=== PATIENT | male | born 1995 | race African-American/Black ===

== ENCOUNTER 2016-07-23 12:54 | Emergency (ER) ==
[2016-07-23 13:02] VITALS: BP 125/102
[2016-07-23] MEDS ORDERED: DECADRON IM ONE (15:03)
--- NOTE | 2016-07-23 15:07 | PROVIDER DOCUMENTATION ---
HPI-General Adult - General Chief Complaint: Sore Throat Stated Complaint: SORE THROAT,COUGHING,CONGESTED,SEGUNDO Time Seen by Provider: 07/23/16 14:12 Source: patient Allergies/Adverse Reactions: Patient Allergies Allergy/AdvReac Type Severity Reaction Status Date / Time No Known Allergies Allergy Verified 07/23/16 14:39 Home Medications: Home Medication List Medication Instructions Recorded Confirmed Last Taken Type Prednisone [Deltasone] 20 mg PO DIRECTED #12 tablet 07/23/16 Unknown Rx - History of Present Illness -Gen Adult Nature of Presenting Problems: 20 y/o AAM c/o sore throat, congestion and body aches x 2 days. Denies fevers or chills. Non-productive cough. Denies sob or wheezing. Denies abdominal pain,n /v/d. Niece was sick earlier this week. No pre-arrival treatments. Review of Systems - Adult - REVIEW OF SYSTEMS - ADULT Constitutional: reports: see HPI, fatique. denies: chills, fever Eyes: reports: no symptoms reported. denies: decreased vision, blurred vision, double vision, eye pain Ears, Nose, Mouth & Throat: reports: see HPI, ear pain, sinus problem, nose pain , throat pain Cardiovascular: reports: no symptoms reported. denies: chest pain Respiratory: reports: see HPI, cough. denies: shortness of breath, wheezing Gastrointestinal: reports: no symptoms reported. denies: abdominal pain, diarrhea, nausea, vomiting Genitourinary: reports: no symptoms reported. denies: dysuria, discharge, frequency Musculoskeletal: reports: see HPI, muscle aches. denies: bone pain, back pain Integumentary: reports: no symptoms reported. denies: rash Neurological: reports: no symptoms reported. denies: headache/migraines Psychiatric: reports: no symptoms reported Endocrine: reports: no symptoms reported Hematologic/Lymphatic: reports: no symptoms reported Allergic/Immunologic: reports: no symptoms reported All Other Systems: Reviewed and Negative Past History - Adult - PAST MEDICAL HISTORY-ADULT Review of Records: reports: Old Records Reviewed, Nursing Assessment Review, Medications Reviewed Major Childhood Illnesses: reports: denies history Cardiovascular: reports: denies history Respiratory: reports: asthma Gastrointestinal: reports: denies history Neurological: reports: headaches/migraines - PRIOR SURGERIES/PROCEDURES Surgical/Procedure History: reports: none - IMMUNIZATION STATUS Childhood Immunizations: See Nurse Assessment Flu Vaccine: See Nurse Assessment - FAMILY HISTORY Family History: HTN - SOCIAL HISTORY Smoking: less than 1 pack/day Provider spent 3-5 mins advising pt. on dangers of tobacco.: Discussed manners to quit use, and f/u contacts for add'l counseling. Substance Use: marijuana Alcohol Use Frequency: every day Number of drinks per typical drinking period:: 2 drinks Living Situation: family Physical Exam-General - PHYSICAL EXAM-ADULT Initial Vital Signs Reviewed: Yes - CONSTITUTIONAL General Appearance: appears well, alert, no apparent distress - EYES Eyes: PERRL/EOMI, pink conjunctivae - HEAD, EARS, NOSE, MOUTH & THROAT HENMT: normocephalic/atraumatic, moist mucous membranes, normal ENT inspection, TMs normal, pharynx normal - NECK Neck: non-tender, full range of motion, supple, normal inspection. negative: lymphadenopathy - RESPIRATORY Respiratory: chest non-tender, lungs clear, normal breath sounds, no pleuratic chest pain, no respiratory distress, no accessory muscle use. negative: respiratory distress, decreased breath sounds, accessory muscle use, crackles, rales, rhonchi, wheezing - CARDIOVASCULAR Cardiovascular: normal peripheral pulses, regular rate, rhythm - MUSCULOSKELETAL Back Exam: normal inspection Extremity: normal gait - SKIN Integumentary: normal color, normal turgor, warm/dry - NEUROLOGIC Neurologic: grossly normal, no motor/sensory deficits - PSYCHIATRIC Psych/Mental Status: normal mood/affect, normal thought content, normal thought process, oriented x 3 Progress - PLAN OF CARE/RESULTS Progress/Plan/Lab Results: Vital Signs Temp Pulse Resp BP Pulse Ox 07/23/16 13:00 98.5 F 97 H 20 125/102 100 No Known Allergies Allergy (Verified 07/23/16 14:39) Prednisone [Deltasone] 20 mg PO DIRECTED #12 tablet 07/23/16 Orders Category Date Time Status DIRECT STREP Stat Lab 07/23/16 13:04 Completed Flu Swab [INFLUENZA SCREEN A/B] Stat Lab 07/23/16 13:04 Completed Dexamethasone [Decadron] Med 07/23/16 15:03 Discontinued 4 mg IM NOW ONE strep and flu negative Departure - Departure Time of Disposition Order: 15:03 DIAGNOSIS: Viral URI with cough Disposition: HOME 01 Certified Medical Emergency: Emergent Condition: Stable Additional Instructions: Drink fluids and get plenty of sleep ED Follow Up Instructions: You have been treated by a care provider in the Emergency Department. These instructions are being provided to you so you can have an understanding of how to care for yourself upon discharge. Upon discharge from the Emergency Department, you are responsible for making arrangements for follow-up care by a physician of your choice. Take all prescribed medications as directed. Return to the Emergency Department immediately for any new or worsening symptoms. You may call the Physician Referral phone number at [phone] to obtain a list of Physicians who are taking new patients. Prescriptions: Prednisone [Deltasone] 20 mg PO DIRECTED #12 tablet Attestation - Physician/ CELSO Attestation Patient care was provided by Advanced Practice Provider:: Yes Advanced Practice Provider:: Pham Del Real Advanced Practice Provider documentation review:: The Mid-level provider documentation, treatment plan and medical decision making was reviewed by the physician who agrees with all treatment and medical decision making by the MLP.
== END 2016-07-23 16:00 | disposition home or self-care (01) ==
LOC: ED 12:54
DX: J06.9 Acute upper respiratory infection, unspecified (principal); R05 Cough; J02.9 Acute pharyngitis, unspecified; R09.81 Nasal congestion; R51 Headache; R53.83 Other fatigue; H92.09 Otalgia, unspecified ear; J34.89 Other specified disorders of nose and nasal sinuses; M79.1 Myalgia; F17.210 Nicotine dependence, cigarettes, uncomplicated; Z71.6 Tobacco abuse counseling
CPT/HCPCS: 87081; 87430; 87804; 96372; J1100

== ENCOUNTER 2016-07-27 20:32 | Emergency (ER) ==
[2016-07-27 20:53] LABS: URINE CULTURE NEEDED? NO; URINE MICRO REVIEW NEEDED? NO; URINE SOURCE CLEAN CATCH
[2016-07-27 20:57] LABS: BASO% 0.3 % (0.0-0.8); BILIRUBIN URINE NEGATIVE (NEGATIVE); BLOOD URINE SMALL (NEGATIVE); COLOR STRAW; EOS# 0.94 X1000 (0.0-0.7); GLUCOSE URINE NEGATIVE (NEGATIVE); HEMATOCRIT 39.2 % (42.0-52.0); HEMOGLOBIN 12.8 g/dL (14.0-18.0); IMM GRAN# 0.03 X1000 (0.0-0.04); IMM GRAN% 0.3 % (0.0-0.5); LEUKOCYTES URINE NEGATIVE (NEGATIVE); LYMPH# 2.42 X1000 (1.2-3.4); LYMPH% 25.7 % (20.5-51.1); MANUAL DIFF NEEDED? NO; MCH 24.1 PG (27-31); MCHC 32.7 g/dL (33-37); MCV 73.7 FL (81-99); MONO# 1.05 X1000 (0.11-0.59); MONO% 11.1 % (1.7-9.3); MPV 9.7 FL (7.4-10.4); NEUT% 52.6 % (42.2-75.2); NITRITE URINE NEGATIVE (NEGATIVE); PH URINE 7.5; PLT 293 X1000 (130-400); PROTEIN URINE 50 mg/dL (NEGATIVE); RBC 5.32 XMIL (4.7-6.1); SP GRAVITY URINE 1.004; TURBIDITY URINE CLEAR (CLEAR); UR EPITHELIAL CELLS <10 /HPF (<10); URINE BACTERIA NEGATIVE /HPF; URINE WBC <10 /HPF (<10); UROBILINOGEN URINE NORMAL (NORMAL)
[2016-07-27 21:20] LABS: AGAP 13; ALKALINE PHOSPHATASE 53 U/L (32-122); AMYLASE 49 U/L (20-200); BUN 8 mg/dL (8-22); CALCIUM 8.9 mg/dL (8.8-10.2); CHLORIDE 99 mmol/L (98-107); COSMO 274; GOT 16 U/L (10-34); GPT 13 U/L (10-44); LIPASE 32 U/L (13-60); POTASSIUM 4.4 mmol/L (3.5-5.1); SODIUM 138 mmol/L (136-145); TCO2 26 mmol/L (25-35); TOTAL PROTEIN 7.2 g/dL (6.3-8.3)
--- NOTE | 2016-07-27 21:41 | PROVIDER DOCUMENTATION ---
HPI-Abdominal Pain/GI Problem <Cecil Lynn - Last Filed: 07/27/16 22:44> - General Source: patient - History of Present Illness-ABD Nature of Presenting Problems: 20 year old M presents to the ED with a cc of ABD pain, nausea, vomiting, and diarrhea x2 days. PT was seen on 07/23 for cough, congestion, and body aches. PT states that he is still having cough and congestion. Pt has been able to keep fluids down the past 2 days. PT states ABD pain is worse with coughing. Abdominal Pain Onset Location: reports: RLQ, LLQ Pain Radiation: reports: no radiation Quality of Pain: reports: aching Severity in ED: reports: mild Onset/Duration: reports: 2 days ago Timing: reports: still present Activities at Onset: reports: none Associated Symptoms: reports: cough, diarrhea, sinus congestion/drainage, nausea , vomiting # of Diarrhea Episodes: 6 Bruising or Bleeding Gums?: No Similar Symptoms Previously?: No Recently seen or treated by another doctor?: No <Sheela Queen - Last Filed: 07/27/16 22:56> - General Chief Complaint: Abdominal Pain Stated Complaint: ABD PAIN, NAUSEA Time Seen by Provider: 07/27/16 21:30 Allergies/Adverse Reactions: Patient Allergies Allergy/AdvReac Type Severity Reaction Status Date / Time No Known Allergies Allergy Verified 07/27/16 22:07 Home Medications: Home Medication List Medication Instructions Recorded Confirmed Last Taken Type Codeine/Promethazine [Phenergan 10 ml PO TID PRN PRN #120 ml 07/27/16 Unknown Rx with Codeine] Review of Systems - Adult - REVIEW OF SYSTEMS - ADULT Constitutional: denies: chills, fever Eyes: reports: no symptoms reported Ears, Nose, Mouth & Throat: reports: sinus problem. denies: ear pain, throat pain Cardiovascular: reports: no symptoms reported Respiratory: reports: cough. denies: shortness of breath Gastrointestinal: reports: abdominal pain, diarrhea, nausea, vomiting Genitourinary: denies: dysuria, hematuria Musculoskeletal: reports: no symptoms reported Integumentary: reports: no symptoms reported Neurological: reports: no symptoms reported Psychiatric: reports: no symptoms reported Endocrine: reports: no symptoms reported Hematologic/Lymphatic: reports: no symptoms reported Allergic/Immunologic: reports: no symptoms reported All Other Systems: Reviewed and Negative <Sheela Queen - Last Filed: 07/27/16 22:56> Past History - Adult - PAST MEDICAL HISTORY-ADULT Review of Records: reports: Nursing Assessment Review, Medications Reviewed Major Childhood Illnesses: reports: denies history Cardiovascular: reports: denies history Respiratory: reports: asthma Gastrointestinal: reports: denies history Neurological: reports: headaches/migraines Psychiatric: reports: other (ETOH abuse and chemical abuse) - PRIOR SURGERIES/PROCEDURES Surgical/Procedure History: reports: none - IMMUNIZATION STATUS Childhood Immunizations: See Nurse Assessment Flu Vaccine: See Nurse Assessment - FAMILY HISTORY Family History: HTN - SOCIAL HISTORY Smoking: cigarettes Provider spent 3-5 mins advising pt. on dangers of tobacco.: Discussed manners to quit use, and f/u contacts for add'l counseling. Substance Use: alcohol, marijuana Alcohol Use Frequency: every day Number of drinks per typical drinking period:: 2 drinks <Sheela Queen - Last Filed: 07/27/16 22:56> Physical Exam-General - PHYSICAL EXAM-ADULT Initial Vital Signs Reviewed: Yes - CONSTITUTIONAL General Appearance: appears well, alert, no apparent distress - RESPIRATORY Respiratory: chest non-tender, lungs clear, normal breath sounds - CARDIOVASCULAR Cardiovascular: normal peripheral pulses, regular rate, rhythm, no edema - GASTROINTESTINAL (ABDOMEN) Abdominal Exam: normal bowel sounds, soft, guarding (voluntary), rebound (mild) , tenderness (mild generalized ABD tenderness greater in RLQ), McBurney's point tenderness, other (positive heal tap) - MUSCULOSKELETAL Extremity: normal inspection - SKIN Integumentary: normal color, normal turgor, warm/dry - PSYCHIATRIC Psych/Mental Status: normal mood/affect, normal thought content, normal thought process, oriented x 3 <Sheela Queen - Last Filed: 07/27/16 22:56> Progress - PLAN OF CARE/RESULTS Progress/Plan/Lab Results: plan of care: labs, medications, imaging. Orders Category Date Time Status Saline Loc DIRECTED Care 07/27/16 20:40 Active NPO Diet 07/27/16 20:40 Active ABDOMEN/PELVIS W/O CONTRAST [CT] Stat Exams 07/27/16 21:43 Taken AMYLASE [CHEM] Stat Lab 07/27/16 20:40 Completed CBC WITH ELECTRONIC DIFF [HEME] Stat Lab 03/21/17 20:40 Completed COMPREHENSIVE METABOLIC PANEL [CHEM] Stat Lab 07/27/16 20:40 Completed LIPASE [CHEM] Stat Lab 07/27/16 20:40 Completed URINALYSIS W/POSS RFLX CULT [URINALYSIS] Stat Lab 07/27/16 20:40 Completed Codeine/Promethazine [Phenergan with Codeine Liquid] Med 07/27/16 22:43 Discontinued 10 ml PO NOW ONE Hydrocodone/APAP 7.5 mg/325 mg [[place]-7.5] Med 07/27/16 21:43 Discontinued 1 each PO NOW ONE Ibuprofen [Motrin] Med 07/27/16 21:43 Discontinued 800 mg PO NOW ONE Ondansetron Odt [Zofran Odt] Med 07/27/16 21:43 Discontinued 8 mg PO NOW ONE Laboratory Tests 07/27/16 07/27/16 07/27/16 20:40 20:40 20:40 WBC 9.42 RBC 5.32 Hgb 12.8 L Hct 39.2 L MCV 73.7 L MCH 24.1 L MCHC 32.7 L RDW Std Deviation 13.9 Plt Count 293 MPV 9.7 Immature Gran % (Auto) 0.3 Neut % (Auto) 52.6 Lymph % (Auto) 25.7 [place] % (Auto) 11.1 H Eos % (Auto) 10.0 Baso % (Auto) 0.3 Immature Gran # (Auto) 0.03 Neut # (Auto) 4.95 Lymph # (Auto) 2.42 [place] # (Auto) 1.05 H Eos # (Auto) 0.94 H Baso # (Auto) 0.03 Sodium 138 Potassium 4.4 Chloride 99 Carbon Dioxide 26 Anion Gap 13 BUN 8 Creatinine 1.3 H Estimated GFR/1.73 m2 > 60 BUN/Creatinine Ratio 6 Glucose 90 Calculated Osmolality 274 Calcium 8.9 Total Bilirubin 0.10 L AST 16 ALT 13 Alkaline Phosphatase 53 Total Protein 7.2 Albumin 4.0 Globulin 3.2 Albumin/Globulin Ratio 1.3 Amylase 49 Lipase 32 Urine Source CLEAN CATCH Urine Color STRAW Urine Turbidity CLEAR Urine pH 7.5 Ur Specific [place] 1.004 Urine Protein 50 A Ur Glucose (Stick) NEGATIVE Ur Ketones (Stick) NEGATIVE Urine Blood SMALL A Urine Nitrite NEGATIVE Urine Bilirubin NEGATIVE Urobilinogen Dipstick NORMAL Urine Leukocytes NEGATIVE Urine WBC (Auto) <10 Urine RBC (Auto) 10-20 A U Epithel Cells (Auto) <10 Urine Bacteria (Auto) NEGATIVE Vital Signs - 24 hr 07/27/16 20:38 Temperature 98.4 F Pulse Rate 74 Respiratory 16 Rate Blood Pressure 180/103 O2 Sat by Pulse 100 Oximetry Pt given results and will be d/c home w/ rx to follow up with PCP. Pt verbally understood instructions. PT remained clinically stable throughout the course of the ED stay and will return if symptoms worsen. - CT/MRI 1 CT Study: Abdomen, Pelvis Impression: Abnormal (Probable prior granulomatous disease with multiple calcified granulomas in the spleen. Trace pelvic free fluid. This is nonspecific and etiology is uncertain. Otherwise unremarkable noncontrast ABD and pelvis CT.: Dr. Crespo([facility] radiologist)) <Sheela Queen - Last Filed: 07/27/16 22:56> Departure - Departure Time of Disposition Order: 22:44 Certified Medical Emergency: Emergent <Cecil Lynn - Last Filed: 07/27/16 22:44> <Sheela Queen - Last Filed: 07/27/16 22:56> - Departure DIAGNOSIS: Viral URI with cough Abdominal pain Qualifiers: Abdominal location: right lower quadrant Qualified Code(s): R10.31 - Right lower quadrant pain Disposition: HOME 01 Condition: Good Additional Instructions: ED Follow Up Instructions: You have been treated by a care provider in the Emergency Department. These instructions are being provided to you so you can have an understanding of how to care for yourself upon discharge. Upon discharge from the Emergency Department, you are responsible for making arrangements for follow-up care by a physician of your choice. Take all prescribed medications as directed. Return to the Emergency Department immediately for any new or worsening symptoms. You may call the Physician Referral phone number at [phone] to obtain a list of Physicians who are taking new patients. Prescriptions: Codeine/Promethazine [Phenergan with Codeine] 10 ml PO TID PRN PRN #120 ml PRN Reason: Cough Referrals: Balbir Rivera MD [Primary Care Provider] - Instructions: Cough, Adult, [id number], Abdominal Pain, Adult, [id number] Attestation - Scribe Verification/Attestation Scribe:: Sheela Queen Acting as Scribe for:: Cecil Lynn Scribe documention review:: This chart was documented by a scribe and accurately reflects the service the provider performed and the decisions made by the provider. <Sheela Queen - Last Filed: 07/27/16 22:56> Physician Attestation
[2016-07-27] MEDS ORDERED: MOTRIN PO ONE (21:43)
[2016-07-27] MEDS ORDERED: NORCO-7.5 PO ONE (21:43)
[2016-07-27] MEDS ORDERED: ZOFRAN ODT PO ONE (21:43)
[2016-07-27] MEDS ORDERED: PHENERGAN WITH CODEINE LIQUID PO ONE (22:43)
[2016-07-27 23:47] VITALS: BP 179/92
--- NOTE | 2016-07-28 09:27 | Diag Imaging Result Document ---
PROCEDURE NAME: ABDOMEN/PELVIS W/O CONTRAST - 07/27/2016 CT ABDOMEN AND PELVIS WITHOUT CONTRAST: COMPARISON: None available. FINDINGS: There are several calcified granulomata in the spleen. The gallbladder is contracted and is grossly unremarkable, otherwise. The appendix is normal. The kidneys are unremarkable. The remainder of the solid viscera of the abdomen and pelvis and the remainder of the GI tract is essentially unremarkable. No focal inflammatory changes or free abdominal gas is identified. There is trace free fluid layering in the pelvis that is nonspecific. There is no evidence of bowel obstruction. IMPRESSION: 1. Nonspecific trace free fluid layering in the pelvis. The etiology of this is uncertain. 2. Normal appendix. 3. Other incidental/nonacute findings detailed above.
== END 2016-07-27 23:46 | disposition home or self-care (01) ==
LOC: ED 20:32
DX: J06.9 Acute upper respiratory infection, unspecified (principal); R05 Cough; R10.31 Right lower quadrant pain; R10.32 Left lower quadrant pain; R11.2 Nausea with vomiting, unspecified; R19.7 Diarrhea, unspecified; R09.81 Nasal congestion; R52 Pain, unspecified; R10.816 Epigastric abdominal tenderness; R10.813 Right lower quadrant abdominal tenderness; F17.210 Nicotine dependence, cigarettes, uncomplicated; Z71.6 Tobacco abuse counseling
CPT/HCPCS: 74176; 80053; 81001; 82150; 83690; 85025; S0181